=== PATIENT | male | born 1995 ===

== ENCOUNTER 2017-03-04 00:37 | Emergency (ER) | payer OTHER ==
[~2017-03-04] VITALS: Ht 174 cm; Wt 71.4 kg
[2017-03-04 00:41] VITALS: TEMP 36.8; Ht 174 cm; Wt 71.4 kg
--- NOTE | 2017-03-04 01:02 | EMERGENCY ROOM VISIT NOTE ---
History First contact with patient: 00:45 Chief Complaint: FINGER PAIN Stated Complaint: BLOOD UNDER NAIL History of Present Illness The patient is a 21 year old male who presents to the Emergency Room with complaints of blood under his fingernail. The patient states that he closed the right third finger in a door a few hours ago. He reports that blood has collected under the nail and it is painful. He rates his discomfort a 5/10. He attempted to drain the blood on his own but was unsuccessful. He has not taken anything for pain. Review of Systems A complete 10 point review of systems was reviewed with the patient with pertinent positives and negatives as per history of present illness. All else were negative. Past Medical/Surgical History Medical Problems: (1) No Known Active Medical Problems Family History Diabetes mellitus Hypertension Social History Smoking Status: Never Smoker Alcohol Use: none Marital Status: single Housing Status: lives with roommate Occupation Status: [employer] student Current/Historical Medications No Active Prescriptions or Reported Meds Physical Exam Vital Signs Date Time Temp Pulse Resp B/P (MAP) Pulse Ox O2 Delivery O2 Flow Rate FiO2 03/04/17 01:06 62 18 142/94 96 03/04/17 00:41 36.8 62 18 142/94 96 Room Air Physical Exam VITALS: Vitals are noted on the nurse's note and reviewed by myself. Vital signs stable. GENERAL: This is a 21-year-old male, in no acute distress, well-developed well- nourished. MUSCULOSKELETAL: There is a subungual hematoma to the right third digit. No deformities. Tenderness to palpation over the right third finger nail. NEURO: Patient was alert and oriented. Medical Decision & Procedures Procedure Verbal consent was obtained to perform the procedure. Electrocautery was used to perform nail bed trephination to the right third digit. A large amount of blood drained from the subungual hematoma. The patient tolerated the procedure well. He reported improvement in his discomfort after the procedure. Medical Decision Differential diagnosis includes subungual hematoma, contusion, fracture, among others. The patient is a 21-year-old male who presents today with a subungual hematoma. Nail bed trephination was performed and the patient felt much better afterward. The patient did not want x-rays performed and I feel this is reasonable, as even if he does have a small tuft fracture of the distal phalanx , the treatment will be the same. Conservative measures were discussed. He will take [id number] pain meds as needed. He verbalized understanding of my assessment and treatment plan and was discharged home in good condition. Medication Reconcilliation Current Medication List: was personally reviewed by me Blood Pressure Screening Patient's blood pressure: Elevated blood pressure Blood pressure disposition: Elevated BP felt to be situational Impression Primary Impression: Subungual hematoma Departure Information Dispostion Home / Self-Care Condition GOOD Prescriptions No Active Prescriptions or Reported Meds Referrals No Doctor, Assigned (PCP) Patient Instructions ED Hematoma Subungual, My [facility] Additional Instructions For pain control, you can use the following [id number] medicines (if >12 yo): - Regular strength (325mg/tab) Tylenol (acetaminophen) 2 tabs every 4-6 hours as needed. Do not exceed 12 tablets in a 24 hour period. Avoid taking more than 4 grams (4000 mg) of Tylenol per day. This includes any other sources of acetaminophen you may take on a regular basis. - Regular strength (200 mg/tab) Advil (ibuprofen) 1-2 tabs every 4-6 hours as needed. Do not exceed a dose of 3200 mg per day. Your fingernail will most likely fall off in the next few weeks.
[2017-03-04 01:06] VITALS: BP 142/94; PULSE 62; O2SAT 96
== END 2017-03-04 01:07 | disposition home or self-care (01) ==
LOC: C.EDB 00:38 → C.EDA 01:07
DX: S60.131A Contusion of right middle finger with damage to nail, initial encounter (principal); X58.XXXA Exposure to other specified factors, initial encounter; Z83.3 Family history of diabetes mellitus; Z82.49 Family history of ischemic heart disease and other diseases of the circulatory system